=== PATIENT | male | born 2000 | race Caucasian/White ===

== ENCOUNTER 2021-04-28 11:09 | Emergency (ER) | payer OTHER, BC ==
[~2021-04-28] VITALS: Ht 177.8 cm; Wt 72.6 kg
[2021-04-28] MEDS ORDERED: Voltaren100 GM TOP (12:30)
[2021-04-28] MEDS ORDERED: NAPR500 PO (12:30)
== END 2021-04-28 12:42 | disposition home or self-care (01) ==
LOC: ER 11:09
DX: S39.012A Strain of muscle, fascia and tendon of lower back, initial encounter (principal); S33.5XXA Sprain of ligaments of lumbar spine, initial encounter; X58.XXXA Exposure to other specified factors, initial encounter
CPT/HCPCS: 72100; 72170; 99283-25